=== PATIENT | female | born 1930 | race Caucasian/White ===

== ENCOUNTER → 2017-05-14 | Outpatient (CLI) | payer OTHER, BC ==
--- NOTE | ~2017-05-14 | EKG ---
[place] [address] [facility] [place] [address] ELECTROCARDIOGRAM REPORT Name: REJI RENDON [id number] Admission: 05/14/17 Attend Phys: Ganga Devi MD Discharge: Date of : 30 Report #: [id number] THIS REPORT FOR: //name// [facility] Test Date: 2017-05-14 Test Time: 16:01:26 Pat Name: REJI RENDON Department: Room: Gender: F Dcs Engineer: Dominic ROMAN : 1930 Requested By: Ganga Devi Order Number: [id number] MD: Eamon Andrews Measurements Intervals [place] Rate: 104 P: 91 IN: 118 QRS: 50 QRSD: 97 T: 32 QT: 372 QTc: 490 Interpretive Statements Sinus arrhythmia Multiform ventricular premature complexes RSR' in V1 or V2, probably normal variant Borderline prolonged QT interval No previous ECG available for comparison Electronically Signed On 05-14-2017 17:21:51 CDT by Eamon Andrews [email or web address] <ELECTRONICALLY SIGNED> By: Eamon Andrews MD, [facility] 05/14/17 172 160 160 Eamon Andrews MD, [facility] /EPI
== END ==
LOC: CV 15:41
DX: I49.9 Cardiac arrhythmia, unspecified (principal)

== ENCOUNTER → 2017-11-07 | Outpatient (CLI) | payer OTHER, BC | LOC: RAD 02:04 | DX: Z12.31 Encounter for screening mammogram for malignant neoplasm of breast (principal) ==

== ENCOUNTER → 2017-12-26 | Outpatient (CLI) | payer OTHER, BC | LOC: NUC 13:07 | DX: M81.0 Age-related osteoporosis without current pathological fracture (principal); Z78.0 Asymptomatic menopausal state ==

== ENCOUNTER → 2020-04-07 | Outpatient (CLI) | payer OTHER, BC | LOC: NUC 01-14 13:49 | PROVIDERS: ATTEND Family Medicine | DX: M81.0 Age-related osteoporosis without current pathological fracture (principal) ==